=== PATIENT | female | born 1985 | race Two or more races ===

== ENCOUNTER 2016-03-25 13:19 | Inpatient (IN) | payer OTHER ==
[~2016-03-25] VITALS: Ht 152.4 cm; Wt 74.4 kg
[2016-03-25] MEDS ORDERED: TERBUTALINE 1 MG/ML VIAL. SQ PRN (16:30)
[2016-03-25] MEDS ORDERED: OXYTOCIN 30 UNIT/500 ML PREMIX 500 ML IV PRN (16:30)
[2016-03-25] MEDS ORDERED: LIDOCAINE 1% PF 30 ML VIAL. INJ PRN (16:30)
[2016-03-25] MEDS ORDERED: 0.9 % SODIUM CHLORIDE 10 ML DISP.SYRIN. IV PRN (16:30)
[2016-03-25 16:33] VITALS: BP 127/86
[2016-03-25] MEDS ORDERED: PNV1TABL25 PO (16:47)
[2016-03-25] MEDS: IV RINGERS,LACTATED 1000ML 1,000 ML IV SCH ×2 (17:14→21:58)
[2016-03-25 17:29] LABS: HEMATOCRIT 37.3 % (36.0-47.0); HEMOGLOBIN 12.3 g/dL (12.0-15.5); RED BLOOD COUNT 4.12 x10^6/uL (3.50-5.40); RED CELL DISTRIBUTION WIDTH 13.1 % (11.5-14.5); WHITE BLOOD COUNT 10.2 x10^3/uL (4.0-11.0)
--- NOTE | 2016-03-25 23:37 | PDOC1 ---
OB - History Hx of Present Care: Good Care Ultrasounds: Normal mid trimester US Obstetrical Complications: None Medical Complications: None Past Family/Social History * Past Medical, Surgical, Family and Obstetric Histories reviewed from chart. Rubella: Immune RPR/VDRL: Negative GBS Status: Negative HBsAG: Negative OB - Chief Complaint & HPI Date of Admission: Date of Admission: Mar 25, 2016 at 13:19 Chief Complaint/History : 2 Para: 0 EGA: 39 Reason for admission: active labor Admission Nurse Assessment Rev: Yes Problems: OB - Admission Exam Physical Exam Vitals: VS - Last 72 Hours, by Label Date Time Temp Pulse Resp B/P Pulse Ox O2 Delivery O2 Flow Rate FiO2 03/25/16 16:33 97.5 91 20 127/86 97.5 HEENT: Normal Heart: Regular Rate Lungs: Clear Abdomen: Gravid, Non tender, Soft Extremities: Edema Reflexes: Normal Cervical Dilatation: 2cm Effacement: 75% Station: -3 Membranes: Intact Heart Rate: Normal Accelerations: Accelerations Present Decelerations: No decelerations Contractions on Admission: 6-10 Minutes Apart Intensity: Firm Text A: 39 wks IUP Active labor P: Admit for labor management. SUNDEEP SHEPHERD Jr, MD Mar 25, 2016 23:37
[2016-03-26] MEDS ORDERED: ONDANSETRON PF 4 MG/2 ML VIAL. IV PRN ×2 (03:45→14:45)
[2016-03-26] MEDS ORDERED: BUTORPHANOL 2 MG VIAL. IV PRN (04:00)
[2016-03-26] MEDS ORDERED: FENTANYL PF 100 MCG/2 ML VIAL. IV PRN (04:00)
[2016-03-26] MEDS: IV RINGERS,LACTATED 1000ML 1,000 ML IV SCH ×3 (06:19→20:15)
[2016-03-26] MEDS ORDERED: LIDOCAINE 2% PF Vial for OR 5 ML VIAL. ONE ×5 (09:05→13:45)
[2016-03-26] MEDS ORDERED: L&D EPIDURAL CASSETTE 100 ML EP ONE (09:05)
[2016-03-26] MEDS ORDERED: OXYTOCIN 30 UNIT/500 ML PREMIX 500 ML IV ONE (10:00)
[2016-03-26] MEDS ORDERED: CITRIC ACID/SODIUM CITRATE 30 ML SOLUTION. PO ONE (13:30)
[2016-03-26] MEDS ORDERED: CEFAZOLIN PREMIX 2 GM/50 ML BAG. IV ONE (13:43)
[2016-03-26] MEDS ORDERED: FENTANYL PF 100 MCG/2 ML VIAL. ONE (13:45)
[2016-03-26] MEDS ORDERED: MORPHINE PF 5 MG/10 ML VIAL. ONE (13:45)
[2016-03-26] MEDS ORDERED: OXYTOCIN 10 UNIT/ML VIAL. ONE ×2 (13:47→14:06)
[2016-03-26] MEDS ORDERED: CEFAZOLIN 2GM PREMIX 50 ML IV ONE (14:00)
[2016-03-26] MEDS ORDERED: DEXAMETHASONE SOD PHOS 20 MG/5 ML VIAL. ONE (14:19)
[2016-03-26] MEDS ORDERED: PHENYLEPHRINE in 0.9% NACL PF 1 MG/10 ML DISP.SYRIN. IV ONE (14:21)
--- NOTE | 2016-03-26 14:38 | PDOC4 ---
OB Operative Note PRE OP DIAGNOSIS: NRFHT POST OP DIAGNOSIS: NRFHT OPERATION PERFORMED: [address] Porter Anesthesia: Regional (Epidural) Blood Loss 600 ml Specimen placenta and infant OB Findings: Position (Vertex), Sex (Male), (8/9), Weight (3335 Gram), Fluid (Clear) Complications none Additional Remarks pt. SUNDEEP Montoya Jr, MD Mar 26, 2016 14:38
[2016-03-26] MEDS ORDERED: OXYTOCIN 30 UNIT/500 ML PREMIX 500 ML IV PRN (14:45)
[2016-03-26] MEDS ORDERED: SIMETHICONE 80 MG TAB.CHEW PO PRN (14:45)
[2016-03-26] MEDS ORDERED: MAG HYDROX/ALUMINUM HYDROX/SMC 30 ML ORAL.SUSP PO PRN (14:45)
[2016-03-26] MEDS ORDERED: 0.9 % SODIUM CHLORIDE 10 ML DISP.SYRIN. IV PRN (14:45)
[2016-03-26] MEDS ORDERED: ZOLPIDEM 5 MG TABLET. PO PRN (14:45)
[2016-03-26] MEDS ORDERED: MEPERIDINE PF 25 MG/ML VIAL. IM PRN (15:00)
[2016-03-26] MEDS ORDERED: ATROPINE 0.5 MG/5 ML DISP.SYRIN. IV PRN (15:00)
[2016-03-26] MEDS ORDERED: NALOXONE 0.4 MG/ML VIAL. IV PRN (15:00)
[2016-03-26] MEDS ORDERED: DIPHENHYDRAMINE 50 MG/ML VIAL IV PRN (15:00)
[2016-03-26] MEDS ORDERED: MORPHINE SULFATE 4 MG/ML DISP.SYRIN. IV PRN (15:00)
[2016-03-26] MEDS ORDERED: PROCHLORPERAZINE 10 MG/2 ML VIAL. IV PRN (15:00)
[2016-03-26] MEDS: KETOROLAC TROMETHAMINE 30 MG/ML SYRINGE. IV PRN ×2 (16:04→22:24)
[2016-03-26] MEDS ORDERED: FERROUS SULFATE 325 MG TABLET PO SCH (17:00)
[2016-03-26 18:00] VITALS: BP 117/62
[2016-03-26 18:54] VITALS: BP 110/64
[2016-03-26 20:00] VITALS: BP 110/63
--- NOTE | 2016-03-26 23:42 | OP ---
DATE OF SURGERY: PREOPERATIVE DIAGNOSES: Nonreassuring heart tones. POSTOPERATIVE DIAGNOSES: Nonreassuring heart tones. PROCEDURE: Primary low transverse section. SURGEON: Sundeep Porter MD ANESTHESIA: Epidural. ESTIMATED BLOOD LOSS: 600 mL. COMPLICATIONS: None. FINDINGS: Viable male , Apgars 8 and 9. Weight 3335 grams. Three-vessel cord placenta delivered manually intact. COMPLICATIONS: None. SUMMARY: A 30-year-old 3, para 0 at 38 weeks' gestation who presented to Labor and Delivery in active labor. The patient had dilated up to 3 cm. She had internal monitors placed with Pitocin augmentation. The patient began having repetitive decelerations and heart rate. She was counseled on the need for emergent section. Risks, benefits and expectations and voiced a clear understanding to proceed. DESCRIPTION OF PROCEDURE: The patient was taken to surgery suite, placed in dorsal supine position. She was prepped with ChloraPrep and draped in a sterile fashion. After adequate anesthesia, a Pfannenstiel skin incision was made with scalpel down to and through the fascia. The fascia was extended laterally using curved Gonzales scissors. The superior edge of the fascia was grasped with two Liam clamps and dissected free of the abdominal rectus muscle superiorly using some blunt dissection along with Bovie cautery. Same process took place inferiorly. The abdominal rectus muscles were then dissected bluntly at the midline. The peritoneum was grasped with 2 hemostats and entered sharply with Metzenbaum scissors. This incision was extended superiorly as well as inferiorly. The Jose Alberto ring retractor was placed. A low transverse hysterotomy incision was made with scalpel down to the amniotic sac. Hysterotomy incision was extended laterally and superiorly digitally. With the aid of fundal pressure, the infant's head was delivered in a smooth atraumatic manner. With additional fundal pressure, the anterior shoulder was delivered followed by posterior shoulder and rest of the male infant was delivered. The was suctioned with bulb syringe orally and nasally. The umbilical cord was clamped twice and cut. Viable male infant was handed to waiting nursing staff. Umbilical cord blood was obtained. Three-vessel cord placenta was delivered manually intact. The uterus was then exteriorized, cleared of clot and debris with a moist lap. The hysterotomy incision was reapproximated using 1-0 Vicryl suture in running locked fashion. A [id number] suture was placed over the hysterotomy incision in the midline for better hemostasis. The uterus palpated firm, fallopian tubes and ovaries appeared normal bilaterally. Posterior cul-de-sac was cleared of clot and debris with moist lap. The uterus then returned to the abdomen. The pericolic gutters were cleared of clot and debris with a moist lap. Interceed was placed over the hysterotomy incision in an inverted T fashion. The Jose Alberto ring retractor was removed. The peritoneum was reapproximated using 1-0 Vicryl suture in running fashion. Fascia was reapproximated using 0 Vicryl suture in a running fashion. Skin was reapproximated using 4-0 Vicryl suture in subcuticular manner. The patient tolerated the procedure well and was taken to recovery room in stable condition. Sponge and needle counts correct x 3. SUNDEEP PORTER MD DR: HELGA/jose JOB#: [id number] / [id number]
[2016-03-27 00:25] VITALS: BP 113/56
[2016-03-27 04:15] VITALS: BP 115/60
[2016-03-27] MEDS: IV RINGERS,LACTATED 1000ML 1,000 ML IV SCH (04:15)
[2016-03-27] MEDS: KETOROLAC TROMETHAMINE 30 MG/ML SYRINGE. IV PRN (04:15)
[2016-03-27 08:08] LABS: BASO % 0 % (0-3); EOS % 0 % (0-3); HEMATOCRIT 31.2 % (36.0-47.0); HEMOGLOBIN 10.3 g/dL (12.0-15.5); LYMPH # 1.3 x10^3/uL (1.0-4.8); LYMPH % 11 % (24-48); MEAN CORPUSCULAR HEMOGLOBIN 30 pg (25-35); MEAN CORPUSCULAR HGB CONC 33 g/dL (31-37); MEAN CORPUSCULAR VOLUME 91 fL (79-100); MONO % 5 % (0-9); NEUT % 84 % (31-73); PLATELET COUNT 206 x10^3/uL (140-400); RED BLOOD COUNT 3.43 x10^6/uL (3.50-5.40)
--- NOTE | 2016-03-27 10:55 | PDOC ---
OB Progress Note Date of Service 03/27/16 Time of Evaluation 1050 Problem List Problems Medical Problems: (1) delivery delivered Status: Acute Notes Pt. feeling well. Pain controlled. BOttle feeding. Lochia minimal. Lab Laboratory Tests Test 03/25/16 17:00 03/27/16 06:20 White Blood Count 10.2x10^3/uL (4.0-11.0) 12.0x10^3/uL (4.0-11.0) Red Blood Count 4.12x10^6/uL (3.50-5.40) 3.43x10^6/uL (3.50-5.40) Hemoglobin 12.3g/dL (12.0-15.5) 10.3g/dL (12.0-15.5) Hematocrit 37.3% (36.0-47.0) 31.2% (36.0-47.0) Mean Corpuscular Volume 91fL (79-100) 91fL (79-100) Mean Corpuscular Hemoglobin 30pg (25-35) 30pg (25-35) Mean Corpuscular Hemoglobin Concent 33g/dL (31-37) 33g/dL (31-37) Red Cell Distribution Width 13.1% (11.5-14.5) 13.0% (11.5-14.5) Platelet Count 217x10^3/uL (140-400) 206x10^3/uL (140-400) Neutrophils (%) (Auto) 84% (31-73) Lymphocytes (%) (Auto) 11% (24-48) Monocytes (%) (Auto) 5% (0-9) Eosinophils (%) (Auto) 0% (0-3) Basophils (%) (Auto) 0% (0-3) Neutrophils # (Auto) 10.1x10^3uL (1.8-7.7) Lymphocytes # (Auto) 1.3x10^3/uL (1.0-4.8) Monocytes # (Auto) 0.6x10^3/uL (0.0-1.1) Eosinophils # (Auto) 0.0x10^3/uL (0.0-0.7) Basophils # (Auto) 0.0x10^3/uL (0.0-0.2) Laboratory Tests Test 03/27/16 06:20 White Blood Count 12.0x10^3/uL (4.0-11.0) Red Blood Count 3.43x10^6/uL (3.50-5.40) Hemoglobin 10.3g/dL (12.0-15.5) Hematocrit 31.2% (36.0-47.0) Mean Corpuscular Volume 91fL (79-100) Mean Corpuscular Hemoglobin 30pg (25-35) Mean Corpuscular Hemoglobin Concent 33g/dL (31-37) Red Cell Distribution Width 13.0% (11.5-14.5) Platelet Count 206x10^3/uL (140-400) Neutrophils (%) (Auto) 84% (31-73) Lymphocytes (%) (Auto) 11% (24-48) Monocytes (%) (Auto) 5% (0-9) Eosinophils (%) (Auto) 0% (0-3) Basophils (%) (Auto) 0% (0-3) Neutrophils # (Auto) 10.1x10^3uL (1.8-7.7) Lymphocytes # (Auto) 1.3x10^3/uL (1.0-4.8) Monocytes # (Auto) 0.6x10^3/uL (0.0-1.1) Eosinophils # (Auto) 0.0x10^3/uL (0.0-0.7) Basophils # (Auto) 0.0x10^3/uL (0.0-0.2) Medications Current Medications Sodium Chloride 3 ml 3 ml QSHIFT PRN IV AFTER MEDS AND BLOOD DRAWS; Start 03/25 at 16:30 Lactated Ringer's (Iv Lactated Ringers) 1,000 ml @ 125 mls/hr Q8H IV Last administered on 03/27/16t 04:15; Start 03/25/16 at 16:20 Terbutaline Sulfate (Brethine) 0.25 mg 1X PRN PRN SQ SEE COMMENTS; Start at 16:30; Stop 03/26/16 at 16:29; Status DC Lidocaine HCl 30 ml 30 ml 1X PRN PRN INJ SEE COMMENTS; Start 03/25/16 at 16:30 ; Stop 03/27/16 at 16:29 Oxytocin/Sodium Chloride (Oxytocin Premix Infusion) 500 ml @ 0 mls/hr CONT PRN PRN IV Post delivery bleeding; Start 03/25/16 at 16:30 Ondansetron HCl (Zofran) 4 mg PRN Q6HRS PRN IV NAUSEA/VOMITING Last administered on 03/26/16 03:58; Start 03/26/16 at 03:45; Stop 03/26/16 at 14:44 ; Status DC Fentanyl Citrate (Fentanyl 2ml Vial) 100 mcg PRN Q20MIN PRN IV LABOR PAIN; Start 03/26/16 at 04:00 Butorphanol Tartrate 2 mg 2 mg PRN Q2HRS PRN IV LABOR PAIN Last administered on 03/26/16 06:19; Start 03/26/16 at 04:00 Ropivacaine/ Fentanyl/NS ([id number]-Ynmgm-CY 3 Mcg-0.1%) 100 ml @ As Directed STK-MED ONCE EP Last administered on 03/26/16 09:31; Start 03/26/16 at 09:05; Stop 03/26/16 at 09:06; Status DC Lidocaine HCl 5 ml 5 ml STK-MED ONCE .ROUTE Last administered on 03/26/16 09: 27; Start 03/26/16 at 09:05; Stop 03/26/16 at 09:06; Status DC Oxytocin/Sodium Chloride 500 ml @ 0 mls/hr 1X ONCE IV Last administered on 10:06; Start 03/26/16 at 10:00; Stop 03/26/16 at 10:01; Status DC Cefazolin Sodium/ Dextrose (Ancef 2gm Premix) 50 ml @ 100 mls/hr 1X ONCE IV ; Start 03/26/16 at 14:00; Stop 03/26/16 at 14:29; Status DC Citric Acid/ Sodium Citrate (Bicitra) 30 ml 1X ONCE PO ; Start 03/26/16 at 13: 30; Stop 03/26/16 at 13:32; Status DC Fentanyl Citrate (Fentanyl 2ml Vial) 100 mcg STK-MED ONCE .ROUTE ; Start at 13:45; Stop 03/26/16 at 13:46; Status DC Morphine Sulfate (Morphine Preservative Free) 5 mg STK-MED ONCE .ROUTE ; Start 03/26/16 at 13:45; Stop 03/26/16 at 13:46; Status DC Lidocaine HCl (Lidocaine Pf 2% Vial) 5 ml STK-MED ONCE .ROUTE ; Start 03/26/16 at 13:45; Stop 03/26/16 at 13:46; Status DC Lidocaine HCl (Lidocaine Pf 2% Vial) 5 ml STK-MED ONCE .ROUTE ; Start 03/26/16 at 13:45; Stop 03/26/16 at 13:46; Status DC Lidocaine HCl (Lidocaine Pf 2% Vial) 5 ml STK-MED ONCE .ROUTE ; Start 03/26/16 at 13:45; Stop 03/26/16 at 13:46; Status DC Lidocaine HCl (Lidocaine Pf 2% Vial) 5 ml STK-MED ONCE .ROUTE ; Start 03/26/16 at 13:45; Stop 03/26/16 at 13:46; Status DC Oxytocin (Pitocin) 10 unit STK-MED ONCE .ROUTE ; Start 03/26/16 at 13:47; Stop 03/26/16 at 13:48; Status DC Oxytocin (Pitocin) 10 unit STK-MED ONCE .ROUTE ; Start 03/26/16 at 14:06; Stop 03/26/16 at 14:07; Status DC Dexamethasone Sodium Phosphate (Decadron) 20 mg STK-MED ONCE .ROUTE ; Start at 14:19; Stop 03/26/16 at 14:20; Status DC Phenylephrine HCl 1 mg STK-MED ONCE IV ; Start 03/26/16 at 14:21; Stop 03/26/16 at 14:22; Status DC Sodium Chloride 3 ml 3 ml QSHIFT PRN IV AFTER MEDS AND BLOOD DRAWS; Start 03/26 at 14:45 Oxytocin/Sodium Chloride (Oxytocin Premix Infusion) 500 ml @ 125 mls/hr CONT PRN IV EXCESSIVE POST- BLEEDING; Start 03/26/16 at 14:45; Stop 03/26/16 at 22:44; Status DC Ibuprofen (Motrin) 800 mg PRN Q8HRS PRN PO INFLAMMATION; Start 03/26/16 at 14: 45 Ondansetron HCl (Zofran) 4 mg PRN Q6HRS PRN IV NAUSEA/VOMITING; Start 03/26/16 at 14:45 Docusate Sodium (Colace) 100 mg PRN BID PRN PO CONSTIPATION; Start 03/26/16 at 14:45 Al Hydrox/Mg Hydrox/Simethicone (Mylanta Plus Xs) 30 ml PRN Q4HRS PRN PO HEARTBURN / GAS; Start 03/26/16 at 14:45 Simethicone (Gas-X) 80 mg PRN AFTMEALHC PRN PO GAS / BLOATING; Start 03/26/16 at 14:45 Diphenhydramine HCl (Benadryl Oral Elixir) 12.5 mg PRN Q6HRS PRN PO ITCHING; Start 03/26/16 at 14:45 Ferrous Sulfate (Feosol) 325 mg BIDWMEALS PO ; Start 03/26/16 at 17:00 Zolpidem Tartrate (Ambien) 5 mg PRN QHS PRN PO INSOMNIA, MAY REPEAT X1; Start 03/26/16 at 14:45 Oxycodone/ Acetaminophen (Percocet 5/325) 2 tab PRN Q4HRS PRN PO MODERATE PAIN , SEVERE PAIN; Start 03/26/16 at 14:45 Ketorolac Tromethamine (Toradol) 30 mg PRN Q6HRS PRN IV PAIN Last administered on 03/27/16t 04:15; Start 03/26/16 at 14:45; Stop 03/31/16 at 14:44 Morphine Sulfate 4 mg PRN Q10MIN PRN IV PAIN; Start 03/26/16 at 15:00; Stop at 14:59 Diphenhydramine HCl (Benadryl) 25 mg PRN Q4HRS PRN IV ITCHING; Start 03/26/16 at 15:00; Stop 03/27/16 at 14:59 Meperidine HCl (Demerol) 12.5 mg PRN Q15MIN PRN IM SHIVERING; Start 03/26/16 at 15:00; Stop 03/27/16 at 14:59 Prochlorperazine Edisylate (Compazine) 5 mg PRN Q6HRS PRN IV NAUSEA/VOMITING; Start 03/26/16 at 15:00; Stop 03/27/16 at 14:59 Atropine Sulfate 0.5 mg PRN 1X PRN IV SEE COMMENTS; Start 03/26/16 at 15:00; Stop 03/27/16 at 14:59 Naloxone HCl (Narcan) 0.04 mg PRN Q2MIN PRN IV SEE COMMENTS; Start 03/26/16 at 15:00; Stop 03/27/16 at 14:59 Cefazolin Sodium/ Dextrose (Ancef 2gm Premix) 2 gm STK-MED ONCE IV ; Start 03/26 at 13:43; Stop 03/27/16 at 08:17; Status DC Active Scripts Active Reported Tablet (Pnv Cmb#95/Ferrous Fumarate/Fa) 1 Each Tablet 1 Tab PO DAILY Exam Abd: soft, mild tenderness, fundus firm Bandage in place and dry. Assessment A: POD#1 s/p c/s Plan of Care: Continue current Tx, Mgmt SUNDEEP SHEPHERD Jr, MD Mar 27, 2016 10:55
[2016-03-27 11:15] VITALS: BP 99/58
[2016-03-27] MEDS: DOCUSATE SODIUM 100 MG CAPSULE PO PRN ×2 (12:32→19:37)
[2016-03-27] MEDS: OXYCODONE/APAP 5/325 TABLET. PO PRN ×2 (12:32→19:37)
[2016-03-27 15:20] VITALS: BP 110/66
[2016-03-27 21:15] VITALS: BP 110/68
[2016-03-28 01:44] VITALS: BP 110/74
[2016-03-28 06:00] VITALS: BP 108/72
[2016-03-28] MEDS: OXYCODONE/APAP 5/325 TABLET. PO PRN ×2 (06:02→18:30)
[2016-03-28 09:35] VITALS: BP 110/69
--- NOTE | 2016-03-28 13:32 | PDOC ---
OB Progress Note Date of Service 03/28/16 Time of Evaluation 1330 Problem List Problems Medical Problems: (1) delivery delivered Status: Acute Lab Laboratory Tests Test 03/27/16 06:20 White Blood Count 12.0x10^3/uL (4.0-11.0) Red Blood Count 3.43x10^6/uL (3.50-5.40) Hemoglobin 10.3g/dL (12.0-15.5) Hematocrit 31.2% (36.0-47.0) Mean Corpuscular Volume 91fL (79-100) Mean Corpuscular Hemoglobin 30pg (25-35) Mean Corpuscular Hemoglobin Concent 33g/dL (31-37) Red Cell Distribution Width 13.0% (11.5-14.5) Platelet Count 206x10^3/uL (140-400) Neutrophils (%) (Auto) 84% (31-73) Lymphocytes (%) (Auto) 11% (24-48) Monocytes (%) (Auto) 5% (0-9) Eosinophils (%) (Auto) 0% (0-3) Basophils (%) (Auto) 0% (0-3) Neutrophils # (Auto) 10.1x10^3uL (1.8-7.7) Lymphocytes # (Auto) 1.3x10^3/uL (1.0-4.8) Monocytes # (Auto) 0.6x10^3/uL (0.0-1.1) Eosinophils # (Auto) 0.0x10^3/uL (0.0-0.7) Basophils # (Auto) 0.0x10^3/uL (0.0-0.2) Medications Current Medications Sodium Chloride 3 ml 3 ml QSHIFT PRN IV AFTER MEDS AND BLOOD DRAWS; Start 03/25 at 16:30; Stop 03/27/16 at 23:28; Status DC Lactated Ringer's (Iv Lactated Ringers) 1,000 ml @ 125 mls/hr Q8H IV Last administered on 03/27/16t 04:15; Start 03/25/16 at 16:20; Stop 03/27/16 at 23:28 ; Status DC Terbutaline Sulfate (Brethine) 0.25 mg 1X PRN PRN SQ SEE COMMENTS; Start at 16:30; Stop 03/26/16 at 16:29; Status DC Lidocaine HCl 30 ml 30 ml 1X PRN PRN INJ SEE COMMENTS; Start 03/25/16 at 16:30 ; Stop 03/27/16 at 16:29; Status DC Oxytocin/Sodium Chloride (Oxytocin Premix Infusion) 500 ml @ 0 mls/hr CONT PRN PRN IV Post delivery bleeding; Start 03/25/16 at 16:30; Stop 03/27/16 at 23:28; Status DC Ondansetron HCl (Zofran) 4 mg PRN Q6HRS PRN IV NAUSEA/VOMITING Last administered on 03/26/16 03:58; Start 03/26/16 at 03:45; Stop 03/26/16 at 14:44 ; Status DC Fentanyl Citrate (Fentanyl 2ml Vial) 100 mcg PRN Q20MIN PRN IV LABOR PAIN; Start 03/26/16 at 04:00; Stop 03/27/16 at 23:28; Status DC Butorphanol Tartrate 2 mg 2 mg PRN Q2HRS PRN IV LABOR PAIN Last administered on 03/26/16 06:19; Start 03/26/16 at 04:00; Stop 03/27/16 at 23:28; Status DC Ropivacaine/ Fentanyl/NS (Jbclnznm-Lvgfz-PC 3 Mcg-0.1%) 100 ml @ As Directed STK-MED ONCE EP Last administered on 03/26/16 09:31; Start 03/26/16 at 09:05; Stop 03/26/16 at 09:06; Status DC Lidocaine HCl 5 ml 5 ml STK-MED ONCE .ROUTE Last administered on 03/26/16 09: 27; Start 03/26/16 at 09:05; Stop 03/26/16 at 09:06; Status DC Oxytocin/Sodium Chloride 500 ml @ 0 mls/hr 1X ONCE IV Last administered on 10:06; Start 03/26/16 at 10:00; Stop 03/26/16 at 10:01; Status DC Cefazolin Sodium/ Dextrose (Ancef 2gm Premix) 50 ml @ 100 mls/hr 1X ONCE IV ; Start 03/26/16 at 14:00; Stop 03/26/16 at 14:29; Status DC Citric Acid/ Sodium Citrate (Bicitra) 30 ml 1X ONCE PO ; Start 03/26/16 at 13: 30; Stop 03/26/16 at 13:32; Status DC Fentanyl Citrate (Fentanyl 2ml Vial) 100 mcg STK-MED ONCE .ROUTE ; Start at 13:45; Stop 03/26/16 at 13:46; Status DC Morphine Sulfate (Morphine Preservative Free) 5 mg STK-MED ONCE .ROUTE ; Start 03/26/16 at 13:45; Stop 03/26/16 at 13:46; Status DC Lidocaine HCl (Lidocaine Pf 2% Vial) 5 ml STK-MED ONCE .ROUTE ; Start 03/26/16 at 13:45; Stop 03/26/16 at 13:46; Status DC Lidocaine HCl (Lidocaine Pf 2% Vial) 5 ml STK-MED ONCE .ROUTE ; Start 03/26/16 at 13:45; Stop 03/26/16 at 13:46; Status DC Lidocaine HCl (Lidocaine Pf 2% Vial) 5 ml STK-MED ONCE .ROUTE ; Start 03/26/16 at 13:45; Stop 03/26/16 at 13:46; Status DC Lidocaine HCl (Lidocaine Pf 2% Vial) 5 ml STK-MED ONCE .ROUTE ; Start 03/26/16 at 13:45; Stop 03/26/16 at 13:46; Status DC Oxytocin (Pitocin) 10 unit STK-MED ONCE .ROUTE ; Start 03/26/16 at 13:47; Stop 03/26/16 at 13:48; Status DC Oxytocin (Pitocin) 10 unit STK-MED ONCE .ROUTE ; Start 03/26/16 at 14:06; Stop 03/26/16 at 14:07; Status DC Dexamethasone Sodium Phosphate (Decadron) 20 mg STK-MED ONCE .ROUTE ; Start at 14:19; Stop 03/26/16 at 14:20; Status DC Phenylephrine HCl 1 mg STK-MED ONCE IV ; Start 03/26/16 at 14:21; Stop 03/26/16 at 14:22; Status DC Sodium Chloride 3 ml 3 ml QSHIFT PRN IV AFTER MEDS AND BLOOD DRAWS; Start 03/26 at 14:45; Stop 03/27/16 at 23:28; Status DC Oxytocin/Sodium Chloride (Oxytocin Premix Infusion) 500 ml @ 125 mls/hr CONT PRN IV EXCESSIVE POST- BLEEDING; Start 03/26/16 at 14:45; Stop 03/26/16 at 22:44; Status DC Ibuprofen (Motrin) 800 mg PRN Q8HRS PRN PO INFLAMMATION; Start 03/26/16 at 14: 45 Ondansetron HCl (Zofran) 4 mg PRN Q6HRS PRN IV NAUSEA/VOMITING; Start 03/26/16 at 14:45 Docusate Sodium (Colace) 100 mg PRN BID PRN PO CONSTIPATION Last administered on 03/27/16 19:37; Start 03/26/16 at 14:45 Al Hydrox/Mg Hydrox/Simethicone (Mylanta Plus Xs) 30 ml PRN Q4HRS PRN PO HEARTBURN / GAS; Start 03/26/16 at 14:45 Simethicone (Gas-X) 80 mg PRN AFTMEALHC PRN PO GAS / BLOATING; Start 03/26/16 at 14:45 Diphenhydramine HCl (Benadryl Oral Elixir) 12.5 mg PRN Q6HRS PRN PO ITCHING; Start 03/26/16 at 14:45 Ferrous Sulfate (Feosol) 325 mg BIDWMEALS PO ; Start 03/26/16 at 17:00 Zolpidem Tartrate (Ambien) 5 mg PRN QHS PRN PO INSOMNIA, MAY REPEAT X1; Start 03/26/16 at 14:45 Oxycodone/ Acetaminophen (Percocet 5/325) 2 tab PRN Q4HRS PRN PO MODERATE PAIN , SEVERE PAIN Last administered on 03/28/16 06:02; Start 03/26/16 at 14:45 Ketorolac Tromethamine (Toradol) 30 mg PRN Q6HRS PRN IV PAIN Last administered on 03/27/16 04:15; Start 03/26/16 at 14:45; Stop 03/31/16 at 14:44 Morphine Sulfate 4 mg PRN Q10MIN PRN IV PAIN; Start 03/26/16 at 15:00; Stop at 14:59; Status DC Diphenhydramine HCl (Benadryl) 25 mg PRN Q4HRS PRN IV ITCHING; Start 03/26/16 at 15:00; Stop 03/27/16 at 14:59; Status DC Meperidine HCl (Demerol) 12.5 mg PRN Q15MIN PRN IM SHIVERING; Start 03/26/16 at 15:00; Stop 03/27/16 at 14:59; Status DC Prochlorperazine Edisylate (Compazine) 5 mg PRN Q6HRS PRN IV NAUSEA/VOMITING; Start 03/26/16 at 15:00; Stop 03/27/16 at 14:59; Status DC Atropine Sulfate 0.5 mg PRN 1X PRN IV SEE COMMENTS; Start 03/26/16 at 15:00; Stop 03/27/16 at 14:59; Status DC Naloxone HCl (Narcan) 0.04 mg PRN Q2MIN PRN IV SEE COMMENTS; Start 03/26/16 at 15:00; Stop 03/27/16 at 14:59; Status DC Cefazolin Sodium/ Dextrose (Ancef 2gm Premix) 2 gm STK-MED ONCE IV ; Start 03/26 at 13:43; Stop 03/27/16 at 08:17; Status DC Active Scripts Active Reported Tablet (Pnv Cmb#95/Ferrous Fumarate/Fa) 1 Each Tablet 1 Tab PO DAILY Exam Abd: soft, non tender, fundus firm Assessment PPD#1 s/p Plan of Care: Continue current Tx, Mgmt SUNDEEP SHEPHERD Jr, MD Mar 28, 2016 13:32
[2016-03-28 17:25] VITALS: BP 122/76
[2016-03-28] MEDS: IBUPROFEN 800 MG TABLET. PO PRN (18:29)
[2016-03-28] MEDS: DIPHENHYDRAMINE ORAL ELIXIR 12.5 MG/5 ML. PO PRN (20:58)
[2016-03-28] MEDS: DOCUSATE SODIUM 100 MG CAPSULE PO PRN (20:58)
[2016-03-28 21:00] VITALS: BP 117/85
[2016-03-29 01:15] VITALS: BP 108/70
[2016-03-29] MEDS: IBUPROFEN 800 MG TABLET. PO PRN (06:12)
[2016-03-29] MEDS: DIPHENHYDRAMINE ORAL ELIXIR 12.5 MG/5 ML. PO PRN (06:12)
[2016-03-29 06:15] VITALS: BP 138/78
[2016-03-29] MEDS ORDERED: INFLUENZA VAX SCREEN BY RX. MC ONE (09:00)
[2016-03-29] MEDS ORDERED: DIPHTH,PERTUSS(ACELL),TET TOX 0.5 ML DISP.SYRIN. VAX IM ONE (09:00)
[2016-03-29] MEDS ORDERED: FLU VACC QUAD 2016-17 (36MOS+)/PF 0.5 ML SYRINGE. VAX IM ONE (09:00)
[2016-03-29] MEDS ORDERED: CETIRIZINE HCL 10 MG TABLET PO PRN (11:00)
[2016-03-29 11:03] VITALS: BP 131/76
[2016-03-29] MEDS: DOCUSATE SODIUM 100 MG CAPSULE PO PRN (11:14)
--- NOTE | 2016-03-29 11:50 | PDOC ---
OB Progress Note Date of Service 03/29/16 Time of Evaluation 1145 Problem List Problems Medical Problems: (1) delivery delivered Status: Acute Notes Pt. feeling well. No complaints except nasal congestion. Medications Current Medications Sodium Chloride 3 ml 3 ml QSHIFT PRN IV AFTER MEDS AND BLOOD DRAWS; Start 03/25 at 16:30; Stop 03/27/16 at 23:28; Status DC Lactated Ringer's (Iv Lactated Ringers) 1,000 ml @ 125 mls/hr Q8H IV Last administered on 03/27/16 04:15; Start 03/25/16 at 16:20; Stop 03/27/16 at 23:28 ; Status DC Terbutaline Sulfate (Brethine) 0.25 mg 1X PRN PRN SQ SEE COMMENTS; Start at 16:30; Stop 03/26/16 at 16:29; Status DC Lidocaine HCl 30 ml 30 ml 1X PRN PRN INJ SEE COMMENTS; Start 03/25/16 at 16:30 ; Stop 03/27/16 at 16:29; Status DC Oxytocin/Sodium Chloride (Oxytocin Premix Infusion) 500 ml @ 0 mls/hr CONT PRN PRN IV Post delivery bleeding; Start 03/25/16 at 16:30; Stop 03/27/16 at 23:28; Status DC Ondansetron HCl (Zofran) 4 mg PRN Q6HRS PRN IV NAUSEA/VOMITING Last administered on 03/26/16 03:58; Start 03/26/16 at 03:45; Stop 03/26/16 at 14:44 ; Status DC Fentanyl Citrate (Fentanyl 2ml Vial) 100 mcg PRN Q20MIN PRN IV LABOR PAIN; Start 03/26/16 at 04:00; Stop 03/27/16 at 23:28; Status DC Butorphanol Tartrate 2 mg 2 mg PRN Q2HRS PRN IV LABOR PAIN Last administered on 03/26/16 06:19; Start 03/26/16 at 04:00; Stop 03/27/16 at 23:28; Status DC Ropivacaine/ Fentanyl/NS ([id number]-NR 3 Mcg-0.1%) 100 ml @ As Directed STK-MED ONCE EP Last administered on 03/26/16 09:31; Start 03/26/16 at 09:05; Stop 03/26/16 at 09:06; Status DC Lidocaine HCl 5 ml 5 ml STK-MED ONCE .ROUTE Last administered on 03/26/16t 09: 27; Start 03/26/16 at 09:05; Stop 03/26/16 at 09:06; Status DC Oxytocin/Sodium Chloride 500 ml @ 0 mls/hr 1X ONCE IV Last administered on t 10:06; Start 03/26/16 at 10:00; Stop 03/26/16 at 10:01; Status DC Cefazolin Sodium/ Dextrose (Ancef 2gm Premix) 50 ml @ 100 mls/hr 1X ONCE IV ; Start 03/26/16 at 14:00; Stop 03/26/16 at 14:29; Status DC Citric Acid/ Sodium Citrate (Bicitra) 30 ml 1X ONCE PO ; Start 03/26/16 at 13: 30; Stop 03/26/16 at 13:32; Status DC Fentanyl Citrate (Fentanyl 2ml Vial) 100 mcg STK-MED ONCE .ROUTE ; Start at 13:45; Stop 03/26/16 at 13:46; Status DC Morphine Sulfate (Morphine Preservative Free) 5 mg STK-MED ONCE .ROUTE ; Start 03/26/16 at 13:45; Stop 03/26/16 at 13:46; Status DC Lidocaine HCl (Lidocaine Pf 2% Vial) 5 ml STK-MED ONCE .ROUTE ; Start 03/26/16 at 13:45; Stop 03/26/16 at 13:46; Status DC Lidocaine HCl (Lidocaine Pf 2% Vial) 5 ml STK-MED ONCE .ROUTE ; Start 03/26/16 at 13:45; Stop 03/26/16 at 13:46; Status DC Lidocaine HCl (Lidocaine Pf 2% Vial) 5 ml STK-MED ONCE .ROUTE ; Start 03/26/16 at 13:45; Stop 03/26/16 at 13:46; Status DC Lidocaine HCl (Lidocaine Pf 2% Vial) 5 ml STK-MED ONCE .ROUTE ; Start 03/26/16 at 13:45; Stop 03/26/16 at 13:46; Status DC Oxytocin (Pitocin) 10 unit STK-MED ONCE .ROUTE ; Start 03/26/16 at 13:47; Stop 03/26/16 at 13:48; Status DC Oxytocin (Pitocin) 10 unit STK-MED ONCE .ROUTE ; Start 03/26/16 at 14:06; Stop 03/26/16 at 14:07; Status DC Dexamethasone Sodium Phosphate (Decadron) 20 mg STK-MED ONCE .ROUTE ; Start at 14:19; Stop 03/26/16 at 14:20; Status DC Phenylephrine HCl 1 mg STK-MED ONCE IV ; Start 03/26/16 at 14:21; Stop 03/26/16 at 14:22; Status DC Sodium Chloride 3 ml 3 ml QSHIFT PRN IV AFTER MEDS AND BLOOD DRAWS; Start 03/26 at 14:45; Stop 03/27/16 at 23:28; Status DC Oxytocin/Sodium Chloride (Oxytocin Premix Infusion) 500 ml @ 125 mls/hr CONT PRN IV EXCESSIVE POST- BLEEDING; Start 03/26/16 at 14:45; Stop 03/26/16 at 22:44; Status DC Ibuprofen (Motrin) 800 mg PRN Q8HRS PRN PO INFLAMMATION Last administered on 06:12; Start 03/26/16 at 14:45 Ondansetron HCl (Zofran) 4 mg PRN Q6HRS PRN IV NAUSEA/VOMITING; Start 03/26/16 at 14:45; Stop 03/28/16 at 22:53; Status DC Docusate Sodium (Colace) 100 mg PRN BID PRN PO CONSTIPATION Last administered on 03/29/16 11:14; Start 03/26/16 at 14:45 Al Hydrox/Mg Hydrox/Simethicone (Mylanta Plus Xs) 30 ml PRN Q4HRS PRN PO HEARTBURN / GAS; Start 03/26/16 at 14:45 Simethicone (Gas-X) 80 mg PRN AFTMEALHC PRN PO GAS / BLOATING; Start 03/26/16 at 14:45 Diphenhydramine HCl (Benadryl Oral Elixir) 12.5 mg PRN Q6HRS PRN PO ITCHING Last administered on 03/29/16 06:12; Start 03/26/16 at 14:45 Ferrous Sulfate (Feosol) 325 mg BIDWMEALS PO ; Start 03/26/16 at 17:00; Stop at 22:53; Status DC Zolpidem Tartrate (Ambien) 5 mg PRN QHS PRN PO INSOMNIA, MAY REPEAT X1; Start 03/26/16 at 14:45 Oxycodone/ Acetaminophen (Percocet 5/325) 2 tab PRN Q4HRS PRN PO MODERATE PAIN , SEVERE PAIN Last administered on 03/28/16t 18:30; Start 03/26/16 at 14:45 Ketorolac Tromethamine (Toradol) 30 mg PRN Q6HRS PRN IV PAIN Last administered on 03/27/16t 04:15; Start 03/26/16 at 14:45; Stop 03/28/16 at 22:53; Status DC Morphine Sulfate 4 mg PRN Q10MIN PRN IV PAIN; Start 03/26/16 at 15:00; Stop at 14:59; Status DC Diphenhydramine HCl (Benadryl) 25 mg PRN Q4HRS PRN IV ITCHING; Start 03/26/16 at 15:00; Stop 03/27/16 at 14:59; Status DC Meperidine HCl (Demerol) 12.5 mg PRN Q15MIN PRN IM SHIVERING; Start 03/26/16 at 15:00; Stop 03/27/16 at 14:59; Status DC Prochlorperazine Edisylate (Compazine) 5 mg PRN Q6HRS PRN IV NAUSEA/VOMITING; Start 03/26/16 at 15:00; Stop 03/27/16 at 14:59; Status DC Atropine Sulfate 0.5 mg PRN 1X PRN IV SEE COMMENTS; Start 03/26/16 at 15:00; Stop 03/27/16 at 14:59; Status DC Naloxone HCl (Narcan) 0.04 mg PRN Q2MIN PRN IV SEE COMMENTS; Start 03/26/16 at 15:00; Stop 03/27/16 at 14:59; Status DC Cefazolin Sodium/ Dextrose (Ancef 2gm Premix) 2 gm STK-MED ONCE IV ; Start 03/26 at 13:43; Stop 03/27/16 at 08:17; Status DC Info (Do NOT chart on this placeholder) 1 each 1X ONCE MC ; Start 03/29/16 at 09:00; Stop 03/29/16 at 09:01; Status UNV Influenza Virus Vaccine Quadrival (Fluarix Quad [id number] Syringe) 0.5 ml ONCE ONCE VAX IM Last administered on 03/29/16 10:02; Start 03/29/16 at 09:00; Stop 03/29/16 at 09:01; Status DC Diphtheria/ Tetanus/Acell Pertussis (Boostrix) 0.5 ml ONCE ONCE VAX IM Last administered on 03/29/16 09:57; Start 03/29/16 at 09:00; Stop 03/29/16 at 09:01 ; Status DC Cetirizine HCl (Zyrtec) 10 mg PRN DAILY PRN PO ALLERGIES Last administered on 11:14; Start 03/29/16 at 11:00 Active Scripts Active Reported Tablet (Pnv Cmb#95/Ferrous Fumarate/Fa) 1 Each Tablet 1 Tab PO DAILY Exam Abd; soft, mild tenderness, fundus firm INcision site: clean, dry and intact Assessment POD#3 s/p c/s Plan of Care: See new orders (D/c home.) SUNDEEP SHEPHERD Jr, MD Mar 29, 2016 11:50
--- NOTE | 2016-03-29 11:51 | DISCH ---
DISCHARGE INSTRUCTIONS Condition on Discharge Condition on Discharge: Stable Activity After Discharge Activity Instructions for Disc: Activity as tolerated Lifting Instructions after Dis: No heavy lifting Driving Instructions after Dis: No driving for 2 weeks Diet after Discharge Diet after Discharge: Regular Contacting the DRTata after DC Call your doctor for: Concerns you may have Follow-Up Follow up with: Dr. Porter in 2 weeks. SUNDEEP PORTER Jr, MD Mar 29, 2016 11:50
[2016-03-29] MEDS ORDERED: DOCU-27 PO (11:52)
[2016-03-29] MEDS ORDERED: OXYC-323 PO (11:52)
[2016-03-29] MEDS ORDERED: IBUP-1060 PO (11:52)
[2016-03-29] MEDS: OXYCODONE/APAP 5/325 TABLET. PO PRN (15:44)
[2016-03-29 16:00] VITALS: BP 123/74
== END 2016-03-29 17:00 | disposition home or self-care (01) | DRG 766 ==
LOC: 3 SO LND 13:19 → OBSVTOIN 16:28 → 3 SO LND 03-26 18:06
PROVIDERS: ADMIT Obstetrics & Gynecology; ATTEND Obstetrics & Gynecology
PROC: 10D00Z1 Extraction of Products of Conception, Low, Open Approach (ICD-10-PCS; principal; 2016-03-26)
DX: O76 Abnormality in fetal heart rate and rhythm complicating labor and delivery (principal); Z37.0 Single live birth; Z3A.39 39 weeks gestation of pregnancy
CPT/HCPCS: 36415; 85027; 86593; 86850; 86900; 86901; 90686; 90715; G0378; G0379; J0690; J1100; J1885; J2270; J2370; J2405; J2590; J3010; J7120

== ENCOUNTER → 2017-11-22 | Outpatient (CLI) | payer OTHER ==
[~2017-11-22] MED LIST: DOCU-109 PO; IBUP-1060 PO; OXYC-323 PO; PNV1TABL25 PO
--- NOTE | 2017-11-22 16:32 | KCIC ---
PREG MORE THAN OR EQ TO 14 WKS History: Uterine size date discrepancy Comparison: There is no previous relevant exam available. Findings: Multiple sonographic images of the uterus are submitted. There is a single intrauterine fetus in cephalic presentation. Cervix measured 5.3 cm. Amniotic fluid volume is considered within normal limits, estimated CHRISTEL about 10.5 cm. heart rate was 163 bpm. There is three-vessel cord. There is no obvious abnormality of the visualized spine. There is a four-chamber view of the heart. stomach, bladder, and 2 kidneys were visualized. There is midline cord insertion. There is anterior placenta. Biometry data are as follows: Biparietal diameter 4.7 cm corresponding with 20 weeks 1 day. Head circumference 17.18 cm corresponding with 19 weeks 5 days Abdominal circumference 15.44 cm corresponding with 20 weeks 4 days Femur length 3.03 cm corresponding with 19 weeks 3 days HC/AC ratio within normal limits 1.11. Adjusted ultrasound age 20 weeks 0 days with estimated delivery date of 04/11/2018. LMP age is 20 weeks 4 days with estimated delivery date of 04/07/2018. Estimated weight 327 g +/- 48 g. Impression: 1. There is a single intrauterine fetus in cephalic presentation, adjusted ultrasound age 20 weeks 0 days with estimated delivery date of 04/11/2018. Electronically signed by: Candelario Viveros MD (11/22/2017 4:29 PM) [id number]
== END | disposition home or self-care (01) ==
LOC: KCIC US 15:14
PROVIDERS: ATTEND Obstetrics & Gynecology
DX: O26.842 Uterine size-date discrepancy, second trimester (principal); Z3A.20 20 weeks gestation of pregnancy
CPT/HCPCS: 76805

== ENCOUNTER → 2018-01-08 | Outpatient (CLI) | payer OTHER ==
[~2018-01-08] MED LIST changes: -OXYC-323 PO; +OXYC1TAB15 PO
== END | disposition home or self-care (01) ==
LOC: LAB 09:33
PROVIDERS: ATTEND Obstetrics & Gynecology
DX: Z34.82 Encounter for supervision of other normal pregnancy, second trimester (principal); Z3A.27 27 weeks gestation of pregnancy
CPT/HCPCS: 36415; 82947; 82950